=== PATIENT | male | born 1960 | race Caucasian/White ===

== ENCOUNTER → 2018-05-24 | Outpatient (CLI) | payer BC ==
[~2018-05-24] VITALS: Ht 177.8 cm; Wt 101.2 kg
[~2018-05-24] MED LIST: CATHETER FLUSH 10 ML SYR IV PRN
[2018-05-24 11:52] LABS: ALANINE AMINOTRANSFERASE 17 U/L (0-55); ALBUMIN 4.7 GM/DL (3.2-4.5); ALKALINE PHOSPHATASE 86 U/L (40-136); BILIRUBIN,TOTAL 0.3 MG/DL (0.1-1.0); BUN/CREATININE RATIO 13; CALCIUM 10.2 MG/DL (8.5-10.1); CARBON DIOXIDE 25 MMOL/L (21-32); CHLORIDE 105 MMOL/L (98-107); CHOLESTEROL 294 MG/DL (< 200); CREATININE SERUM 1.26 MG/DL (0.60-1.30); GFR ESTIMATED 59; GLUCOSE 213 MG/DL (70-105); HDL CHOLESTEROL 55 MG/DL (40-60); POTASSIUM 4.6 MMOL/L (3.6-5.0); SODIUM 138 MMOL/L (135-145); TOTAL PROTEIN 7.5 GM/DL (6.4-8.2); TRIGLYCERIDES 116 MG/DL (<150); VLDL CHOLESTEROL 23 MG/DL (5-40)
[2018-05-24 13:26] VITALS: BP 166/88
--- NOTE | 2018-05-24 15:50 | STRESS TEST ---
DATE OF SERVICE: 05/24/2018 [facility] MYOVIEW STRESS TEST REFERRING PHYSICIAN: Dr. Lili Lebron. Baseline heart rate is 61, baseline blood pressure 139/91. Baseline EKG is sinus rhythm with no ischemic changes. In summary, the patient was injected with 10.45 mCi of technetium-99 Myoview and the resting images were obtained and the patient started exercising with a baseline heart rate, blood pressure and EKG mentioned above. The patient was able to exercise for a total of 6 minutes on standard Giacomo protocol. With peak exercise level, EKG was showing nondiagnostic changes. Blood pressure was 166/88. During recovery, heart rate and blood pressure returned to baseline. With peak stress level, the patient was injected with 32.5 mCi of technetium-99 Myoview. The resting and stress images were reviewed and compared in the short axis, horizontal long axis, and vertical long axis views. Review of the images showed good radiotracer uptake with no significant ischemia or infarction. SSS is 0. TID value is 0.93. On the gated images, the left ventricle appeared to be normal size with normal contractility. Calculated ejection fraction is 56%. CONCLUSION: 1. Fair exercise tolerance, a total of 6 minutes on standard Giacomo protocol, total of 7.3 METs, achieving 88% of maximum expected heart rate. 2. Hypertensive response to exercise with peak stress level, blood pressure was 192/117. Minimal nondiagnostic EKG changes with exercise, returned to baseline during recovery. 3. No ischemia or infarction on SPECT images. 4. Normal left ventricular size with normal contractility. Calculated ejection fraction is 56%. Job ID: [id number] DocumentID: [id number] Dictated Date: 05/24/2018 15:17:33 Machining Technician Date: 05/24/2018 15:49:15 Dictated By: SEA SAWANT MD
== END ==
LOC: CARD 11:07
PROVIDERS: ATTEND Internal Medicine Cardiovascular Disease
DX: E11.9 Type 2 diabetes mellitus without complications (principal); R53.83 Other fatigue; I10 Essential (primary) hypertension; R06.02 Shortness of breath
CPT/HCPCS: 36415; 78452; 80053; 80061; 84153; 93017; 93306

== ENCOUNTER → 2018-06-07 | Outpatient (CLI) | payer BC | LOC: RT 09:21 | PROVIDERS: ATTEND Internal Medicine Cardiovascular Disease | DX: R06.02 Shortness of breath (principal); E11.9 Type 2 diabetes mellitus without complications; I10 Essential (primary) hypertension; R53.83 Other fatigue | CPT/HCPCS: 94060; 94726; 94729 ==